=== PATIENT | female | born 1940 | race Caucasian/White ===

== ENCOUNTER 2016-06-22 08:00 | Outpatient (CLI) | payer MEDICARE, OTHER | END 2016-06-22 08:01 | disposition home or self-care (01) | DX: N39.0 Urinary tract infection, site not specified (principal) ==

== ENCOUNTER 2016-07-01 16:38 | Outpatient (CLI) | payer MEDICARE, OTHER | END 2016-07-01 16:39 | disposition home or self-care (01) | DX: R10.2 Pelvic and perineal pain (principal) ==

== ENCOUNTER 2016-07-13 08:45 | Outpatient (CLI) | payer MEDICARE, OTHER | END 2016-07-13 08:46 | disposition home or self-care (01) | DX: I10 Essential (primary) hypertension (principal); D69.6 Thrombocytopenia, unspecified; B18.2 Chronic viral hepatitis C ==

== ENCOUNTER 2017-02-11 08:25 | Outpatient (CLI) | payer MEDICARE, OTHER | END 2017-02-11 08:26 | disposition home or self-care (01) | LOC: LAB.F 08:25 | PROVIDERS: ATTEND Physician Assistant Medical | DX: E03.9 Hypothyroidism, unspecified (principal) | CPT/HCPCS: 36415; 84443 ==

== ENCOUNTER 2017-09-24 10:39 | Outpatient (CLI) | payer MEDICARE, OTHER ==
--- NOTE | 2017-09-24 14:27 | XRAY Report ---
THREE VIEW RIGHT KNEE: 09/24/2017 CLINICAL INDICATION: Pain. FINDINGS: AP, lateral, sunrise views of the right knee demonstrate moderate osteoarthritis. There is no evidence of acute fracture or dislocation. No effusion is seen. IMPRESSION: MODERATE RIGHT KNEE OSTEOARTHRITIS. TD: 09/24/2017 12:08
--- NOTE | 2017-09-24 14:27 | XRAY Report ---
RIGHT HIP AND PELVIS: 09/24/2017 CLINICAL INDICATION: Pain. FINDINGS: Frontal view of the hips and pelvis and frogleg lateral view of the right hip demonstrate moderate osteoarthritis. There is no evidence of acute fracture or dislocation. No radiopaque foreign body seen in the soft tissues. IMPRESSION: MODERATE RIGHT HIP OSTEOARTHRITIS. TD: 09/24/2017 12:06
== END 2017-09-24 10:40 | disposition home or self-care (01) ==
LOC: DI 10:39
PROVIDERS: ATTEND Internal Medicine
DX: M25.551 Pain in right hip (principal); M25.561 Pain in right knee; M16.11 Unilateral primary osteoarthritis, right hip; M17.11 Unilateral primary osteoarthritis, right knee

== ENCOUNTER 2018-03-02 08:37 | Outpatient (CLI) | payer MEDICARE, OTHER ==
[2018-03-02 12:07] LABS: BASOPHILS % (AUTO) 0.5 %; EOSINOPHILS # (AUTO) 0.3 10^3/uL (0.0-0.7); EOSINOPHILS % (AUTO) 5.7 %; HGB - HEMOGLOBIN 13.2 g/dL (12.0-16.0); LYMPHOCYTES # (AUTO) 1.5 10^3/uL (1.5-3.5); LYMPHOCYTES % (AUTO) 34.4 %; MEAN CORPUSCULAR HEMOGLOBIN 31.5 pg (27.0-31.0); MEAN CORPUSCULAR HGB CONC 34.7 g/dL (32.0-36.0); MEAN CORPUSCULAR VOLUME 90.8 fL (81.0-99.0); MEAN PLATELET VOLUME 8.8 fL (7.9-10.8); MONOCYTES # (AUTO) 0.5 10^3/uL (0.0-1.0); NEUTROPHILS # (AUTO) 2.1 10^3/uL (1.5-6.6); NEUTROPHILS % (AUTO) 48.4 %; PLT - PLATELET COUNT 130 10^3/uL (130-450); RED BLOOD COUNT 4.18 10^6/uL (4.20-5.40); RED CELL DISTRIBUTION WIDTH 13.2 % (12.0-15.0); WHITE BLOOD COUNT 4.4 x10^3/uL (4.8-10.8)
[2018-03-02 12:14] LABS: ALBUMIN 4.1 g/dL (3.2-5.5); ALBUMIN/GLOBULIN RATIO 1.5 (1.0-2.2); BILIRUBIN,TOTAL 0.9 mg/dL (0.2-1.0); CALCIUM 9.3 mg/dL (8.5-10.3); CREATININE 1.1 mg/dL (0.4-1.0); TOTAL PROTEIN 6.9 g/dL (6.7-8.2)
== END 2018-03-02 08:38 | disposition home or self-care (01) ==
LOC: LAB.F 08:37
PROVIDERS: ATTEND Physician Assistant Medical
DX: I10 Essential (primary) hypertension (principal); E03.9 Hypothyroidism, unspecified
CPT/HCPCS: 36415; 80053; 84443; 85025

== ENCOUNTER 2018-09-21 08:00 | Outpatient (CLI) | payer MEDICARE, OTHER ==
[2018-09-21 18:18] LABS: ALBUMIN 4.3 g/dL (3.2-5.5); ALBUMIN/GLOBULIN RATIO 1.4 (1.0-2.2); BILIRUBIN,TOTAL 0.7 mg/dL (0.2-1.0); CALCIUM 9.3 mg/dL (8.5-10.3); TOTAL PROTEIN 7.3 g/dL (6.7-8.2)
== END 2018-09-21 23:59 | disposition home or self-care (01) ==
LOC: LAB.F 08:00
PROVIDERS: ATTEND Physician Assistant Medical
DX: N28.9 Disorder of kidney and ureter, unspecified (principal)
CPT/HCPCS: 36415; 80053

== ENCOUNTER 2018-09-22 11:53 | Outpatient (CLI) | payer MEDICARE, OTHER ==
--- NOTE | 2018-09-23 14:03 | XRAY Report ---
Reason: PAIN IN LEFT FINGER Procedure Date: 09/22/2018 Accession Number: [id number] / [id number] Procedure: XR - Finger(s) LT CPT Code: FULL RESULT: EXAM: LEFT THIRD DIGIT RADIOGRAPHY EXAM DATE: 09/22/2018 12:27 PM. CLINICAL HISTORY: Left third digit pain after trauma. COMPARISON: None. TECHNIQUE: 3 views. FINDINGS: Bones: Normal. No fracture or bone lesion. Joints: Normal. No subluxations. Soft Tissues: Normal. No soft tissue swelling. IMPRESSION: No fracture or dislocation. RADIA
== END 2018-09-22 11:54 | disposition home or self-care (01) ==
LOC: DI 11:53
PROVIDERS: ATTEND Physician Assistant Medical
DX: M79.645 Pain in left finger(s) (principal)
CPT/HCPCS: 73140

== ENCOUNTER 2019-01-04 10:18 | Outpatient (CLI) | payer MEDICARE, OTHER ==
[2019-01-04 11:28] LABS: ALBUMIN/GLOBULIN RATIO 1.3 (1.0-2.2); ALKALINE PHOSPHATASE 45 IU/L (42-121); ALT ALANINE AMINOTRANSFERASE 14 IU/L (10-60); AST ASPARTATE AMINOTRANSFERASE 22 IU/L (10-42); BILIRUBIN,TOTAL 0.7 mg/dL (0.2-1.0); BUN - BLOOD UREA NITROGEN 30 mg/dL (6-20); CALCIUM 9.2 mg/dL (8.5-10.3); CARBON DIOXIDE - CO2 29 mmol/L (21-32); CHLORIDE 102 mmol/L (101-111); CHOL/HDL RATIO 2.8 (<4.4); CHOLESTEROL 149 mg/dL; CREATININE 1.3 mg/dL (0.4-1.0); GFR - MDRD 40 (>89); GLUCOSE 115 mg/dL (70-100); HDL CHOLESTEROL 54 mg/dL; LDL CHOLESTEROL,CALCULATED 78 mg/dL; LDL/HDL RATIO 1.4 (<4.4); SODIUM 139 mmol/L (135-145); VLDL CHOLESTEROL 17 mg/dL
--- NOTE | 2019-01-04 19:40 | XRAY Report ---
Reason: CHP, FATIGUE Procedure Date: 01/04/2019 Accession Number: [id number] / [id number] Procedure: XR - Chest 2 View X-Ray CPT Code: 94869 FULL RESULT: EXAM: CHEST RADIOGRAPHY. EXAM DATE: 01/04/2019 10:43 AM. CLINICAL HISTORY: Dyspnea on exertion, fatigue. COMPARISON: XR CHEST PA AND LAT 12/18/2011 12:04 PM. TECHNIQUE: 2 views. FINDINGS: Lungs/Pleura: No focal pneumonia or edema. No pleural effusion or pneumothorax. Mediastinum: Heart size not enlarged. No mediastinal shift. Other: Stable left pacemaker. Lower thoracic congenital partial fusion again noted. Moderate left shoulder arthritic changes. IMPRESSION: No acute process seen in the chest. RADIA
== END 2019-01-04 10:19 | disposition home or self-care (01) ==
LOC: DI 10:18
PROVIDERS: ATTEND Internal Medicine Cardiovascular Disease
DX: I44.2 Atrioventricular block, complete (principal); R53.83 Other fatigue; E03.9 Hypothyroidism, unspecified; N28.9 Disorder of kidney and ureter, unspecified; E78.00 Pure hypercholesterolemia, unspecified; B18.2 Chronic viral hepatitis C
CPT/HCPCS: 36415; 71046; 80053; 80061; 81599; 83721; 84443

== ENCOUNTER 2019-02-11 08:22 | Emergency (ER) | payer MEDICARE, OTHER ==
[2019-02-11 08:41] VITALS: BP 173/86
--- NOTE | 2019-02-11 08:42 | ED Physician Documentation ---
PD HPI URI - Stated complaint Stated Complaint: CONGESTION/COUGHING - Chief complaint Chief Complaint: Resp - History obtained from History obtained from: Patient - History of Present Illness Timing - onset: How many weeks ago (1) Timing duration: Weeks (1) Timing details: Gradual onset (She has had over a week of some congestion ear pain and clear rhinorrhea with nonproductive cough. She is now had 2 days of fevers productive cough of yellowish sputum and feeling worse breathing.), Still present (worsening the past couple of days, with increased cough and purulent sputum.) Associated symptoms: Nasal congestion, Productive cough (for couple of days). No: Fever Contributing factors: Sick contact (was around coughing people at [facility] waiting for flu shot.). No: Travel, Immunocompromised, COPD / asthma Improves by: No: Medication Worsened by: Activity Similar symptoms before: Has not had sx before Recently seen: Not recently seen Review of Systems Constitutional: reports: Fever (low fever the past day) Nose: reports: Rhinorrhea / runny nose, Congestion Throat: denies: Sore throat Cardiac: denies: Chest pain / pressure Respiratory: reports: Dyspnea, Cough. denies: Wheezing GI: denies: Vomiting, Diarrhea Skin: denies: Rash Musculoskeletal: denies: Extremity swelling PD PAST MEDICAL HISTORY - Past Medical History Cardiovascular: Hypertension, Arrhythmia, Other (pacemaker) Respiratory: None Neuro: None Endocrine/Autoimmune: HyPOthyroidism - Past Surgical History Cardiovascular: Pacemaker - Present Medications Home Medications: Ambulatory Orders Medication Instructions Recorded Confirmed Aspirin Chewable [[facility] Christiano 02/11/19 Aspirin] Benzonatate [Tessalon Perle] 100 mg PO TID PRN #25 capsule 02/11/19 Carvedilol 12.5 mg PO 02/11/19 Doxycycline Hyclate 100 mg PO BID #14 capsule 02/11/19 Levothyroxine [Synthroid] 88 mcg PO QDAC 02/11/19 02/11/19 Meloxicam 15 mg PO 02/11/19 Multivitamin [Multiple Vitamins] 1 each PO 02/11/19 Rosuvastatin Calcium 10 mg PO 02/11/19 Triamterene/Hydrochlorothiazid 1 each PO 02/11/19 [Triamterene-Hctz 37.5-25 mg Cp] dexAMETHasone [Decadron] 4 mg PO DAILY #7 tablet 02/11/19 guaiFENesin/CODEINE [Robitussin AC] 10 ml PO Q6H PRN #240 ml 02/11/19 - Allergies Allergies/Adverse Reactions: Allergies Allergy/AdvReac Type Severity Reaction Status Date / Time cephalexin Allergy Unknown Verified 02/11/19 08:47 Macrolide Antibiotics Allergy Unknown Verified 02/11/19 08:47 oxycodone Allergy Unknown Verified 02/11/19 08:47 Penicillins Allergy Unknown Verified 02/11/19 08:47 Quinolones Allergy Unknown Verified 02/11/19 08:47 ketolides Allergy Unknown Uncoded 02/11/19 08:47 PD ED PE NORMAL - Vitals Vital signs reviewed: Yes - General General: Alert and oriented X 3, No acute distress, Well developed/nourished - HEENT HEENT: Pharynx benign - Neck Neck: Supple, no meningeal sign, No adenopathy - Cardiac Cardiac: RRR, No murmur - Respiratory Respiratory: Clear bilaterally - Abdomen Abdomen: Soft, Non tender - Derm Derm: Normal color, Warm and dry - Extremities Extremities: No tenderness to palpate, Normal ROM s pain, No edema, No calf tenderness / cord - Neuro Neuro: Alert and oriented X 3, No motor deficit, Normal speech Results - Vitals Vitals: Vital Signs - 24 hr 02/11/19 08:39 Temperature 36.7 C Heart Rate 89 Respiratory 20 Rate Blood Pressure 173/86 H O2 Saturation 96 Oxygen O2 Source Room air PD MEDICAL DECISION MAKING - ED course Complexity details: considered differential (Sounds most like an upper respiratory infection and likely viral. However she has increased symptoms now after over a week of illness so consider secondary bacterial bronchitis.), d/w patient Departure - Departure Disposition: 01 Home, Self Care Clinical Impression: Upper respiratory infection Qualifiers: URI type: unspecified URI Qualified Code(s): J06.9 - Acute upper respiratory infection, unspecified Condition: Stable Record reviewed to determine appropriate education?: Yes Instructions: ED Upper Resp Infec Abx Tx Follow-Up: Aidee Benson PA-C [Primary Care Provider] - Prescriptions: Benzonatate [Tessalon Perle] 100 mg PO TID PRN #25 capsule PRN Reason: Cough dexAMETHasone [Decadron] 4 mg PO DAILY #7 tablet Doxycycline Hyclate 100 mg PO BID #14 capsule guaiFENesin/CODEINE [Robitussin AC] 10 ml PO Q6H PRN #240 ml PRN Reason: Cough Comments: Stay well-hydrated. Tylenol if needed for fevers. Doxycycline antibiotic twice daily for a week. Decadron steroid for the inflammation of the upper airway will reduce the s ymptoms quite a bit with less coughing and congestion. Take this daily for a week. Tessalon as needed for cough suppression. Add cough medicine if needed. Recheck if not improving well over the next several days.
[2019-02-11] MEDS ORDERED: DOXYCYCLINE 100 MG TABLET PO STA (08:57)
[2019-02-11] MEDS ORDERED: BENZONATATE 100 MG CAPSULE PO STA (08:57)
[2019-02-11] MEDS ORDERED: DEXAMETHASONE 10 MG/ML VIAL PO STA (08:57)
[2019-02-11] MEDS ORDERED: CHERRY SYRUP 10 ML UDC PO ONE (08:57)
== END 2019-02-11 09:10 | disposition home or self-care (01) ==
LOC: ED 08:22
DX: J06.9 Acute upper respiratory infection, unspecified (principal); I10 Essential (primary) hypertension; Z95.0 Presence of cardiac pacemaker; Z79.82 Long term (current) use of aspirin
CPT/HCPCS: 99284; A9270

== ENCOUNTER 2019-03-30 08:32 | Outpatient (CLI) | payer MEDICARE, OTHER ==
[2019-03-30 09:05] LABS: ALBUMIN 4.1 g/dL (3.2-5.5); ALBUMIN/GLOBULIN RATIO 1.3 (1.0-2.2); BILIRUBIN,TOTAL 0.7 mg/dL (0.2-1.0); CALCIUM 9.4 mg/dL (8.5-10.3); CREATININE 1.1 mg/dL (0.4-1.0); TOTAL PROTEIN 7.2 g/dL (6.7-8.2)
== END 2019-03-30 08:33 | disposition home or self-care (01) ==
LOC: LAB 08:32
PROVIDERS: ATTEND Physician Assistant Medical
DX: N28.9 Disorder of kidney and ureter, unspecified (principal); I10 Essential (primary) hypertension
CPT/HCPCS: 36415; 80053

== ENCOUNTER 2019-06-13 09:37 | Outpatient (CLI) | payer MEDICARE, OTHER ==
[2019-06-13 10:12] LABS: CALCIUM 9.5 mg/dL (8.5-10.3); CREATININE 1.1 mg/dL (0.4-1.0)
== END 2019-06-13 09:38 | disposition home or self-care (01) ==
LOC: LAB 09:37
PROVIDERS: ATTEND Physician Assistant Medical
DX: N28.9 Disorder of kidney and ureter, unspecified (principal)
CPT/HCPCS: 36415; 80048

== ENCOUNTER 2020-05-14 08:58 | Outpatient (CLI) | payer MEDICARE, OTHER ==
[2020-05-14 09:30] LABS: BASOPHILS % (AUTO) 0.6 %; EOSINOPHILS # (AUTO) 0.2 10^3/uL (0.0-0.7); EOSINOPHILS % (AUTO) 4.2 %; HGB - HEMOGLOBIN 12.7 g/dL (12.0-16.0); LYMPHOCYTES # (AUTO) 1.6 10^3/uL (1.5-3.5); LYMPHOCYTES % (AUTO) 33.4 %; MEAN CORPUSCULAR HEMOGLOBIN 31.1 pg (27.0-31.0); MEAN CORPUSCULAR HGB CONC 32.9 g/dL (32.0-36.0); MEAN CORPUSCULAR VOLUME 94.4 fL (81.0-99.0); MEAN PLATELET VOLUME 10.5 fL (7.9-10.8); MONOCYTES # (AUTO) 0.5 10^3/uL (0.0-1.0); MONOCYTES % (AUTO) 10.6 %; NEUTROPHILS # (AUTO) 2.4 10^3/uL (1.5-6.6); PLT - PLATELET COUNT 137 10^3/uL (130-450); RED BLOOD COUNT 4.09 10^6/uL (4.20-5.40); RED CELL DISTRIBUTION WIDTH 12.6 % (12.0-15.0); WHITE BLOOD COUNT 4.8 x10^3/uL (4.8-10.8)
[2020-05-14 09:47] LABS: ALBUMIN 4.1 g/dL (3.2-5.5); ALBUMIN/GLOBULIN RATIO 1.4 (1.0-2.2); ALKALINE PHOSPHATASE 49 IU/L (42-121); ALT ALANINE AMINOTRANSFERASE 15 IU/L (10-60); AST ASPARTATE AMINOTRANSFERASE 23 IU/L (10-42); BILIRUBIN,TOTAL 0.8 mg/dL (0.2-1.0); BUN - BLOOD UREA NITROGEN 31 mg/dL (6-20); CALCIUM 9.6 mg/dL (8.5-10.3); CARBON DIOXIDE - CO2 28 mmol/L (21-32); CHLORIDE 102 mmol/L (101-111); CHOL/HDL RATIO 2.4 (<4.4); CHOLESTEROL 159 mg/dL; CREATININE 1.3 mg/dL (0.4-1.0); GLUCOSE 112 mg/dL (70-100); HDL CHOLESTEROL 65 mg/dL; LDL CHOLESTEROL,CALCULATED 79 mg/dL; LDL/HDL RATIO 1.2 (<4.4); VLDL CHOLESTEROL 15 mg/dL
== END 2020-05-14 08:59 | disposition home or self-care (01) ==
LOC: LAB 08:58
PROVIDERS: ATTEND Physician Assistant
DX: G47.33 Obstructive sleep apnea (adult) (pediatric) (principal); I10 Essential (primary) hypertension; N28.9 Disorder of kidney and ureter, unspecified; E03.9 Hypothyroidism, unspecified; E78.00 Pure hypercholesterolemia, unspecified
CPT/HCPCS: 36415; 80053; 80061; 83721; 84443; 85025

== ENCOUNTER 2020-08-05 08:38 | Day surgery (SDC) | payer MEDICARE, OTHER ==
[2020-08-05] MEDS ORDERED: LACTATED RINGERS 1,000 ML IV ONE ×2 (09:26→10:48)
[2020-08-05] MEDS ORDERED: ATROPINE ABBOJECT 1 MG/10 ML SYRINGE IVP PRN (09:44)
[2020-08-05] MEDS ORDERED: METOCLOPRAMIDE 10 MG/2 ML VIAL IVP PRN (09:44)
[2020-08-05] MEDS ORDERED: fentaNYL 100 MCG/2 ML VIAL IVP PRN (09:44)
[2020-08-05] MEDS ORDERED: ePHEDrine 50 MG/ML VIAL IVP PRN (09:44)
[2020-08-05] MEDS ORDERED: NALOXONE 0.4 MG/ML VIAL IVP PRN (09:44)
[2020-08-05] MEDS ORDERED: ONDANSETRON 4 MG/2 ML VIAL IVP PRN (09:44)
--- NOTE | 2020-08-05 09:44 | ANESTHESIA ---
Pre-Anesthesia VS, & Labs - Diagnosis hx of polyps - Procedure colonoscopy Vital Signs: Temp Pulse Resp BP Pulse Ox 36.4 C L 71 16 158/78 H 94 08/05/20 09:19 08/05/20 09:19 08/05/20 09:19 08/05/20 09:19 08/05/20 09:19 Height: 5 ft 4 in Weight (kg): 99.1 kg Body Mass Index: 37.5 BMI Classification: Obese - NPO >8 hours - Is Patient ?: No Home Medications and Allergies Home Medications: Ambulatory Orders Ascorbic Acid [Vitamin C] 500 mg PO DAILY 08/02/20 Calcium Carbonate/Vitamin D3 [Calcium 600-Vit D3 200 Tablet] 1 each PO QPM 08/02/20 Cholecalciferol (Vitamin D3) [Vitamin D3] 50 mcg PO DAILY 08/02/20 Cranberry Extract 4,200 mg PO BID 08/02/20 Garlic 1,000 mg PO BID 08/02/20 Glucos Sul 2Kcl/MSM/Chond/C/Mn [Glucosamine Chondroitin Cap] 1 each PO DAILY 08/02/20 Green Tea Daniel Extract [Green Tea Extract] 315 mg PO DAILY 08/02/20 Lactobacillus Acidophilus [Probiotic Acidophilus] 1 each PO DAILY 08/02/20 Magnesium Oxide 500 mg PO DAILY 08/02/20 Potassium Gluconate 99 mg PO DAILY 08/02/20 Ubidecarenone [Co Q-10] 200 mg PO QPM 08/02/20 Zolpidem [Ambien] 5 mg PO HS PRN 08/02/20 Aspirin Chewable [St Christiano Aspirin] 81 mg PO DAILY 02/11/19 Carvedilol 12.5 mg PO BID 02/11/19 Levothyroxine [Synthroid] 88 mcg PO QDAC 02/11/19 Multivitamin [Multiple Vitamins] 1 each PO DAILY 02/11/19 Rosuvastatin Calcium 10 mg PO QPM 02/11/19 Triamterene/Hydrochlorothiazid [Triamterene-Hctz 37.5-25 mg Cp] 1 each PO DAILY 02/11/19 Ascorbic Acid [Vitamin C] 500 mg PO DAILY 08/02/20 Calcium Carbonate/Vitamin D3 [Calcium 600-Vit D3 200 Tablet] 1 each PO QPM 08/02/20 Cholecalciferol (Vitamin D3) [Vitamin D3] 50 mcg PO DAILY 08/02/20 Cranberry Extract 4,200 mg PO BID 08/02/20 Garlic 1,000 mg PO BID 08/02/20 Glucos Sul 2Kcl/MSM/Chond/C/Mn [Glucosamine Chondroitin Cap] 1 each PO DAILY 08/02/20 Green Tea Daniel Extract [Green Tea Extract] 315 mg PO DAILY 08/02/20 Lactobacillus Acidophilus [Probiotic Acidophilus] 1 each PO DAILY 08/02/20 Magnesium Oxide 500 mg PO DAILY 08/02/20 Potassium Gluconate 99 mg PO DAILY 08/02/20 Ubidecarenone [Co Q-10] 200 mg PO QPM 08/02/20 Zolpidem [Ambien] 5 mg PO HS PRN 08/02/20 Allergies/Adverse Reactions: Allergies Allergy/AdvReac Type Severity Reaction Status Date / Time cephalexin Allergy Unknown Verified 02/11/19 08:47 Macrolide Antibiotics Allergy Unknown Verified 02/11/19 08:47 oxycodone Allergy Itching Verified 08/02/20 11:59 Penicillins Allergy Itching Verified 08/02/20 11:59 Quinolones Allergy Unknown Verified 02/11/19 08:47 ketolides Allergy Unknown Uncoded 02/11/19 08:47 Anes History & Medical History - Anesthetic History Anesthesia Complications: reports: No previous complications Family history of Anesthesia Complications: Denies Family history of Malignant Hyperthermia: Denies - Medical History Cardiovascular: reports: Hypertension, Peripheral Vascular Disease, [place], Arrhythmia Pulmonary: reports: Shortness of breath, Sleep apnea, CPAP use Gastrointestinal: reports: Colon polyps, Hepatitis Urinary: reports: Incontinence Neuro: reports: None Musculoskeletal: reports: Osteoarthritis, Chronic back pain Endocrine/Autoimmune: reports: HyPOthyroidism Skin: reports: Rosacea History of Cancer?: No - Surgical History Eyes Ears Nose Throat (EENT): reports: Tonsil/Adenoidectomy Cardiothoracic: reports: Pacemaker Gynecologic: reports: Tubal ligation Orthopedic: reports: Rotator cuff repair, Arthroscopic surgery, Carpal Tunnel surgery Dermatologic: reports: Skin cancer surgery Exam General: Alert, Oriented x3, Cooperative Dental: WNL Mouth Openin Fingerbreadth Neck Mobility: Normal Mallampati classification: III Thyromental Distance: 4-6 cm Respiratory: Lungs clear Cardiovascular: Regular rate, Other (pacemaker) Abdomen: Normal bowel sounds Extremities: No clubbing Neurological: Normal gait Mental/Cognitive Status: Alert/Oriented X3 Cognitive Status: Within normal limits Plan Anesthesia Type: Total IV Consent for Procedure(s) Verified and Reviewed: Yes Code Status: Attempt Resuscitation ASA classification: 3-Severe systemic disease Is this case an emergency?: No
[2020-08-05] MEDS ORDERED: LACTATED RINGERS 1,000 ML IV SCH (10:00)
[2020-08-05] MEDS ORDERED: LIDOCAINE-MPF 2% 5 ML VIAL ONE (10:01)
--- NOTE | 2020-08-05 10:06 | HISTORY & PHYSICAL EXAMINATION ---
Chief Complaint - Chief Complaint Chief Complaint: hx colon polyps History of Present Illness - History Obtained From Records Reviewed: yes History obtained from: pt Exam Limitations: none - History of Present Illness HPI Comment/Other: History colon polyps. Last screening 9 to 10 years ago. History - Past Medical History Cardiovascular: reports: Hypertension, Peripheral Vascular Disease, [place], Arrhythmia Respiratory: reports: Shortness of breath, Sleep apnea, CPAP use Neuro: reports: None Endocrine/Autoimmune: reports: HyPOthyroidism GI: reports: Colon polyps, Hepatitis : reports: Incontinence HEENT: reports: Chronic vision loss Psych: reports: None Musculoskeletal: reports: Osteoarthritis, Chronic back pain Derm: reports: Rosacea MRSA Hx?: No - Past Surgical History Ortho: reports: Rotator cuff repair, Arthroscopic surgery, Carpal Tunnel surgery /SHOE [employer]ER: reports: Tubal ligation Cardiovascular: reports: Pacemaker HEENT: reports: Tonsil/Adenoidectomy Derm: reports: Skin cancer surgery Meds/Allgy - Home Medications Home Medications: Ambulatory Orders Medication Instructions Recorded Confirmed Aspirin Chewable [[facility] Christiano 81 mg PO DAILY 02/11/19 08/02/20 Aspirin] Carvedilol 12.5 mg PO BID 02/11/19 08/02/20 Levothyroxine [Synthroid] 88 mcg PO QDAC 02/11/19 08/02/20 Multivitamin [Multiple Vitamins] 1 each PO DAILY 02/11/19 08/02/20 Rosuvastatin Calcium 10 mg PO QPM 02/11/19 08/02/20 Triamterene/Hydrochlorothiazid 1 each PO DAILY 02/11/19 08/02/20 [Triamterene-Hctz 37.5-25 mg Cp] Ascorbic Acid [Vitamin C] 500 mg PO DAILY 08/02/20 08/02/20 Calcium Carbonate/Vitamin D3 1 each PO QPM 08/02/20 08/02/20 [Calcium 600-Vit D3 200 Tablet] Cholecalciferol (Vitamin D3) 50 mcg PO DAILY 08/02/20 08/02/20 [Vitamin D3] Cranberry Extract 4,200 mg PO BID 08/02/20 Garlic 1,000 mg PO BID 08/02/20 08/02/20 Glucos Sul 2Kcl/MSM/Chond/C/Mn 1 each PO DAILY 08/02/20 08/02/20 [Glucosamine Chondroitin Cap] Green Tea Mccool Extract [Green Tea 315 mg PO DAILY 08/02/20 08/02/20 Extract] Lactobacillus Acidophilus 1 each PO DAILY 08/02/20 08/02/20 [Probiotic Acidophilus] Magnesium Oxide 500 mg PO DAILY 08/02/20 08/02/20 Potassium Gluconate 99 mg PO DAILY 08/02/20 08/02/20 Ubidecarenone [Co Q-10] 200 mg PO QPM 08/02/20 08/02/20 Zolpidem [Ambien] 5 mg PO HS PRN 08/02/20 08/02/20 - Allergies Allergies/Adverse Reactions: Allergies Allergy/AdvReac Type Severity Reaction Status Date / Time cephalexin Allergy Unknown Verified 02/11/19 08:47 Macrolide Antibiotics Allergy Unknown Verified 02/11/19 08:47 oxycodone Allergy Itching Verified 08/02/20 11:59 Penicillins Allergy Itching Verified 08/02/20 11:59 Quinolones Allergy Unknown Verified 02/11/19 08:47 ketolides Allergy Unknown Uncoded 02/11/19 08:47 Review of Systems - Constitutional Constitutional: reports: Fatigue (10 pt ros as above otherwise unremarkable) Exam - Vital Signs Reviewed Vital Signs: Yes Vital Signs: Vital Signs x48h Temp Pulse Resp BP Pulse Ox 08/05/20 09:19 36.4 C L 71 16 158/78 H 94 - Physical Exam General Appearance: positive: No acute distress, Alert Eyes Bilateral: positive: Normal inspection, PERRL, EOMI ENT: positive: Pharynx nml, No signs of dehydration Neck: positive: No JVD, Trachea midline Respiratory: positive: No respiratory distress, Breath sounds nml Cardiovascular: positive: Regular rate & rhythm Abdomen: positive: Non-tender, No distention Neurologic/Psychiatric: positive: Oriented x3 Conclusion/Plan - Problem List (1) History of adenomatous polyp of colon Conclusion/Plan: plan colonoscopy. parq held and consent obtained
[2020-08-05 11:27] VITALS: BP 135/70
--- NOTE | 2020-08-05 12:43 | ANESTHESIA POST OP EVALUATION ---
Anesthesia Post Eval - Post Anesthesia Eval Vitals: Last Vital Signs Temp 36.2 C L 08/05/20 11:10 Pulse 64 08/05/20 11:26 Resp 16 08/05/20 11:26 BP 135/70 H 08/05/20 11:26 Pulse Ox 99 08/05/20 11:26 CV Function Including HR & BP: Stable Pain Control: Satisfactory Nausea & Vomiting: Negative Mental Status: Baseline Respiratory Status: Airway Patent Hydration Status: Satisfactory Anesthesia Complications: None
== END 2020-08-05 08:39 | disposition home or self-care (01) ==
LOC: SDS 08:38
PROVIDERS: ATTEND Internal Medicine Gastroenterology
PROC: 0DBN8ZX Excision of Sigmoid Colon, Via Natural or Artificial Opening Endoscopic, Diagnostic (ICD-10-PCS; principal; 2020-08-05 10:00)
DX: Z12.11 Encounter for screening for malignant neoplasm of colon (principal); K57.30 Diverticulosis of large intestine without perforation or abscess without bleeding; G47.33 Obstructive sleep apnea (adult) (pediatric); I25.2 Old myocardial infarction; E66.9 Obesity, unspecified; Z68.37 Body mass index [BMI] 37.0-37.9, adult; I10 Essential (primary) hypertension; Z86.010 Personal history of colon polyps; Z95.0 Presence of cardiac pacemaker
CPT/HCPCS: 45380; J7120

== ENCOUNTER 2021-03-21 08:00 | Outpatient (CLI) | payer MEDICARE, OTHER ==
--- NOTE | 2021-03-21 10:36 | XRAY Report ---
PROCEDURE: Cervical Spine 2 View INDICATIONS: NECK PAIN, ACUTE TECHNIQUE: 3 view(s) of the cervical spine were acquired. COMPARISON: None. FINDINGS: Bones: No fractures or dislocations to the C7 level. The lateral masses of C1 appear intact on the odontoid view. No suspicious bony lesions. Straightening, which may be due to spasm or positioning. Mild to moderate disc height loss with endplate osteophytosis, most prominent at C4-7. Uncovertebral/ facet arthrosis, most prominent at C3-4. Soft tissues: No prevertebral soft tissue swelling. IMPRESSION: 1. No acute osseous abnormality. Reviewed by: Kobe Montelongo MD on 03/21/2021 10:35 AM [facility] [[email or web address]] Approved by: Kobe Montelongo MD on 03/21/2021 10:35 AM [facility] [[email or web address]] Station ID: [id number]
== END 2021-03-21 23:59 | disposition home or self-care (01) ==
LOC: DI.S 08:00
PROVIDERS: ATTEND Physician Assistant
DX: M47.812 Spondylosis without myelopathy or radiculopathy, cervical region (principal)

== ENCOUNTER 2021-06-12 09:30 | Outpatient (CLI) | payer MEDICARE, OTHER ==
[2021-06-12 09:48] LABS: BASOPHILS % (AUTO) 0.4 %; EOSINOPHILS # (AUTO) 0.2 10^3/uL (0.0-0.7); EOSINOPHILS % (AUTO) 4.6 %; HCT - HEMATOCRIT 38.8 % (37.0-47.0); HGB - HEMOGLOBIN 13.1 g/dL (12.0-16.0); LYMPHOCYTES # (AUTO) 1.6 10^3/uL (1.5-3.5); LYMPHOCYTES % (AUTO) 34.4 %; MEAN CORPUSCULAR HEMOGLOBIN 31.5 pg (27.0-31.0); MEAN CORPUSCULAR HGB CONC 33.8 g/dL (32.0-36.0); MEAN CORPUSCULAR VOLUME 93.3 fL (81.0-99.0); MONOCYTES # (AUTO) 0.5 10^3/uL (0.0-1.0); MONOCYTES % (AUTO) 10.5 %; NEUTROPHILS # (AUTO) 2.3 10^3/uL (1.5-6.6); NEUTROPHILS % (AUTO) 49.9 %; PLT - PLATELET COUNT 142 10^3/uL (130-450); RED BLOOD COUNT 4.16 10^6/uL (4.20-5.40); RED CELL DISTRIBUTION WIDTH 12.8 % (12.0-15.0); WHITE BLOOD COUNT 4.6 x10^3/uL (4.8-10.8)
[2021-06-12 10:09] LABS: ALBUMIN 4.1 g/dL (3.2-5.5); ALBUMIN/GLOBULIN RATIO 1.5 (1.0-2.2); ALKALINE PHOSPHATASE 47 IU/L (42-121); ALT ALANINE AMINOTRANSFERASE 14 IU/L (10-60); AST ASPARTATE AMINOTRANSFERASE 22 IU/L (10-42); BUN - BLOOD UREA NITROGEN 31 mg/dL (6-20); CALCIUM 9.7 mg/dL (8.5-10.3); CARBON DIOXIDE - CO2 29 mmol/L (21-32); CHLORIDE 97 mmol/L (101-111); CHOL/HDL RATIO 2.5 (<4.4); CHOLESTEROL 149 mg/dL; CREATININE 1.1 mg/dL (0.4-1.0); GFR - MDRD 48 (>89); GLUCOSE 107 mg/dL (70-100); HDL CHOLESTEROL 59 mg/dL; LDL CHOLESTEROL,CALCULATED 75 mg/dL; LDL/HDL RATIO 1.3 (<4.4); POTASSIUM 4.4 mmol/L (3.5-5.0); SODIUM 136 mmol/L (135-145); TOTAL PROTEIN 6.9 g/dL (6.7-8.2); TRIGLYCERIDES 76 mg/dL; VLDL CHOLESTEROL 15 mg/dL
[2021-06-12 10:20] LABS: THYROID STIMULATING HORMONE 1.78 uIU/mL (0.34-5.60)
== END 2021-06-12 09:31 | disposition home or self-care (01) ==
LOC: LAB 09:30
PROVIDERS: ATTEND Internal Medicine
DX: I10 Essential (primary) hypertension (principal); E03.9 Hypothyroidism, unspecified; E78.00 Pure hypercholesterolemia, unspecified
CPT/HCPCS: 36415; 80053; 80061; 83721; 84443; 85025

== ENCOUNTER 2022-04-22 12:50 | Outpatient (CLI) | payer MEDICARE, OTHER ==
--- NOTE | 2022-04-23 13:03 | Mammography Report ---
BILATERAL DIGITAL SCREENING MAMMOGRAM 3D/2D: 04/22/2022 CLINICAL: Routine screening. No prior exams were available for comparison. There are scattered areas of fibroglandular density in both breasts (category b / 25%-50% glandular t issue). There is a possible irregular equal density focal asymmetry in the left breast central to the nipple posterior depth. No other significant masses, calcifications, or other findings are seen in either breast. IMPRESSION: INCOMPLETE: NEEDS ADDITIONAL IMAGING EVALUATION The possible irregular equal density focal asymmetry in the left breast has a differential diagnosis of fibroglandular tissue and is indeterminate. Additional views with possible ultrasound are recomme nded. Based on the Tyrer Cuzick model (a risk assessment model) the patients lifetime risk is 1.5% and her 10 year risk is 0.0%. According to the ACR, ACS, and NCCN guidelines, an annual breast MRI exam yash g with mammogram is recommended if the patients lifetime risk is 20% or greater. This exam was interpreted at Station ID: [id number]. NOTE: For mammograms, a report in lay terms will be sent to the patient. Approximately 15% of breast malignancies will not be visualized mammographically. In the management of a palpable breast mass, a negative mammogram must not discourage biopsy of a clinically suspicious lesion. Electronically Signed By: Navjot Grayson M.D. aty/:04/22/2022 17:51:08 ACR BI-RADS Category 0: Incomplete 3340F PARENCHYMAL PATTERN: (A) - The breast(s) demonstrate(s) scattered fibroglandular densities. BI-RADS CATEGORY: (0) - 0 Mammo and [place] [id number] Immediate follow-up LATERALITY: (L)
== END 2022-04-22 12:51 | disposition home or self-care (01) ==
LOC: DI 12:50
PROVIDERS: ATTEND Registered Nurse
DX: Z12.31 Encounter for screening mammogram for malignant neoplasm of breast (principal); R92.8 Other abnormal and inconclusive findings on diagnostic imaging of breast

== ENCOUNTER 2022-06-02 07:47 | Outpatient (CLI) | payer MEDICARE, OTHER ==
[2022-06-02] MEDS ORDERED: LIDOCAINE 1%-EPI 1:100000 20 ML MDV ONE (08:07)
[2022-06-02] MEDS ORDERED: LIDOCAINE-MPF 1% 5 ML VIAL ONE (08:08)
[2022-06-02] MEDS ORDERED: LIDOCAINE-MPF 1% 5 ML VIAL TD ONE (15:03)
[2022-06-02] MEDS ORDERED: LIDOCAINE 1%-EPI 1:100000 20 ML MDV SUBQ ONE (16:07)
--- NOTE | 2022-06-04 11:22 | Mammography Report ---
DIGITAL TOMOGRAPHIC MAMMOGRAPHY GUIDED STEREOTACTIC GUIDED BIOPSY LEFT BREAST WITH MARKING DEVICE INS ERTED AND POST MAMMOGRAPHIC IMAGING- POST-PROCEDURE IMAGING FOR MARKER PLACEMENT: 06/02/2022 CLINICAL: Left breast stereotactic biopsy. Correlation is made to exams dated: 05/14/2022 mammogram, 04/22/2022 mammogram - [facility], 02/22/2015 mammogram, and 04/24/2013 mammogram - [facility]. A stereotactic guided biopsy was performed for the indistinct irregular shaped asymmetry located in t he left breast central to the nipple posterior depth. This was described on the previous mammography report. The skin was prepped in the usual manner. Local anesthetic was administered to the access site. A small incision was made in the breast. The abnormality was approached from the craniocaudal aspect using an upright digital tomographic mammography unit. A 9 gauge biopsy needle was placed ad jacent to the abnormality under computer guidance and confirmatory stereotactic mammography images we re obtained to document needle placement. Once the needle was documented to be in the correct locati on, four specimens were obtained using Siemens. A Trimark clip was inserted into the biopsy cavity. Post procedure mammographic imaging demonstrates the location device at the targeted area. The spec imens were sent to the laboratory for pathological analysis. IMPRESSION: STEREOTACTIC GUIDED BIOPSY MALIGNANT Stereotactic guided biopsy of the asymmetry in the left breast central to the nipple posterior depth was successful. 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 Patholog y results are concordant with imaging findings. Surgical/oncologic consult recommended. This exam was interpreted at Station ID: [id number]. Dimitry Mensah M.D. acr,lc/:06/04/2022 10:19:31 BI-RADS CATEGORY: () - Unspecified - other recall n/a LATERALITY: (B)
== END 2022-06-02 07:48 | disposition home or self-care (01) ==
LOC: DI 07:47
PROVIDERS: ATTEND Registered Nurse
DX: C50.112 Malignant neoplasm of central portion of left female breast (principal); Z17.0 Estrogen receptor positive status [ER+]
CPT/HCPCS: 19081

== ENCOUNTER 2022-06-10 10:17 | Outpatient (CLI) | payer MEDICARE, OTHER ==
[2022-06-10 11:07] LABS: BASOPHILS % (AUTO) 0.8 %; EOSINOPHILS # (AUTO) 0.1 10^3/uL (0.0-0.7); EOSINOPHILS % (AUTO) 3.1 %; HCT - HEMATOCRIT 40.2 % (37.0-47.0); HGB - HEMOGLOBIN 13.2 g/dL (12.0-16.0); LYMPHOCYTES # (AUTO) 1.4 10^3/uL (1.5-3.5); LYMPHOCYTES % (AUTO) 36.5 %; MEAN CORPUSCULAR HEMOGLOBIN 30.6 pg (27.0-31.0); MEAN CORPUSCULAR HGB CONC 32.8 g/dL (32.0-36.0); MEAN CORPUSCULAR VOLUME 93.3 fL (81.0-99.0); MONOCYTES # (AUTO) 0.5 10^3/uL (0.0-1.0); MONOCYTES % (AUTO) 11.6 %; NEUTROPHILS # (AUTO) 1.9 10^3/uL (1.5-6.6); NEUTROPHILS % (AUTO) 47.7 %; PLT - PLATELET COUNT 138 10^3/uL (130-450); RED BLOOD COUNT 4.31 10^6/uL (4.20-5.40); RED CELL DISTRIBUTION WIDTH 13.1 % (12.0-15.0); WHITE BLOOD COUNT 3.9 x10^3/uL (4.8-10.8)
[2022-06-10 11:26] LABS: ALBUMIN 3.9 g/dL (3.2-5.5); ALBUMIN/GLOBULIN RATIO 1.3 (1.0-2.2); ALKALINE PHOSPHATASE 46 IU/L (42-121); ALT ALANINE AMINOTRANSFERASE 17 IU/L (10-60); AST ASPARTATE AMINOTRANSFERASE 25 IU/L (10-42); BILIRUBIN,TOTAL 0.8 mg/dL (0.2-1.0); BUN - BLOOD UREA NITROGEN 27 mg/dL (6-20); CALCIUM 9.8 mg/dL (8.5-10.3); CARBON DIOXIDE - CO2 27 mmol/L (21-32); CHLORIDE 104 mmol/L (101-111); CHOL/HDL RATIO 2.3 (<4.4); CHOLESTEROL 151 mg/dL; CREATININE 0.9 mg/dL (0.4-1.0); GFR - MDRD 60 (>89); GLUCOSE 100 mg/dL (70-100); HDL CHOLESTEROL 66 mg/dL; LDL CHOLESTEROL,CALCULATED 74 mg/dL; LDL/HDL RATIO 1.1 (<4.4); POTASSIUM 4.2 mmol/L (3.5-5.0); SODIUM 141 mmol/L (135-145); TOTAL PROTEIN 6.8 g/dL (6.7-8.2); TRIGLYCERIDES 57 mg/dL; VLDL CHOLESTEROL 11 mg/dL
[2022-06-10 11:38] LABS: THYROID STIMULATING HORMONE 3.11 uIU/mL (0.34-5.60)
== END 2022-06-10 10:18 | disposition home or self-care (01) ==
LOC: LAB 10:17
PROVIDERS: ATTEND Registered Nurse
DX: C50.912 Malignant neoplasm of unspecified site of left female breast (principal); Z13.220 Encounter for screening for lipoid disorders; Z13.29 Encounter for screening for other suspected endocrine disorder
CPT/HCPCS: 36415; 80053; 80061; 83721; 84443; 85025

== ENCOUNTER 2023-03-26 09:53 | Outpatient (CLI) | payer MEDICARE, OTHER ==
--- NOTE | 2023-03-29 11:49 | Mammography Report ---
BILATERAL DIGITAL DIAGNOSTIC MAMMOGRAM 3D/2D WITH SPOT COMPRESSION - LEFT BREAST POST LUMPECTOMY: 03/26/2023 CLINICAL: Oncology follow up of left breast cancer. Due for bilateral exam. Comparison is made to exams dated: 09/04/2022 localization, 06/02/2022 stereotactic biopsy, 05/14/2022 m ammogram, and 04/22/2022 mammogram - [facility]. There are scattered areas of fibroglandular density in both breasts (category b / 25%-50% glandular t issue). There are benign post operative findings from prior lumpectomy in the left breast. No significant masses, calcifications, or other findings are seen in either breast. IMPRESSION: BENIGN Left breast status post lumpectomy. No mammographic evidence of malignancy. A 1 year screening mammog judd is recommended. Findings and recommendations were conveyed to the patient during today's evaluation. This exam was interpreted at Station ID: [id number]. NOTE: For mammograms, a report in lay terms will be sent to the patient. Approximately 15% of breast malignancies will not be visualized mammographically. In the management of a palpable breast mass, a negative mammogram must not discourage biopsy of a clinically suspicious lesion. Electronically Signed By: Thalia Eaton M.D., PH.D eb/:03/26/2023 11:12:38 letter sent: No_Letter ACR BI-RADS Category 2: Benign Finding(s) 3342F PARENCHYMAL PATTERN: (A) - The breast(s) demonstrate(s) scattered fibroglandular densities. BI-RADS CATEGORY: (2) - 2 Mammogram [id number] 1 year screening LATERALITY: (B)
== END 2023-03-26 09:54 | disposition home or self-care (01) ==
LOC: DI 09:53
PROVIDERS: ATTEND Internal Medicine Hematology & Oncology
DX: C50.012 Malignant neoplasm of nipple and areola, left female breast (principal); R92.323 Mammographic fibroglandular density, bilateral breasts

== ENCOUNTER 2023-06-12 09:02 | Outpatient (CLI) | payer MEDICARE, OTHER ==
[2023-06-12 09:36] LABS: BASOPHILS % (AUTO) 0.7 %; EOSINOPHILS # (AUTO) 0.1 10^3/uL (0.0-0.7); EOSINOPHILS % (AUTO) 3.1 %; HCT - HEMATOCRIT 38.4 % (37.0-47.0); HGB - HEMOGLOBIN 12.4 g/dL (12.0-16.0); LYMPHOCYTES # (AUTO) 1.5 10^3/uL (1.5-3.5); LYMPHOCYTES % (AUTO) 35.9 %; MEAN CORPUSCULAR HEMOGLOBIN 30.8 pg (27.0-31.0); MEAN CORPUSCULAR HGB CONC 32.3 g/dL (32.0-36.0); MEAN CORPUSCULAR VOLUME 95.3 fL (81.0-99.0); MEAN PLATELET VOLUME 9.2 fL (7.9-10.8); MONOCYTES # (AUTO) 0.5 10^3/uL (0.0-1.0); MONOCYTES % (AUTO) 10.6 %; NEUTROPHILS # (AUTO) 2.1 10^3/uL (1.5-6.6); NEUTROPHILS % (AUTO) 49.2 %; PLT - PLATELET COUNT 138 10^3/uL (130-450); RED BLOOD COUNT 4.03 10^6/uL (4.20-5.40); WHITE BLOOD COUNT 4.2 x10^3/uL (4.8-10.8)
[2023-06-12 09:48] LABS: ALBUMIN 4.1 g/dL (3.2-5.5); ALBUMIN/GLOBULIN RATIO 1.6 (1.0-2.2); ALKALINE PHOSPHATASE 49 IU/L (42-121); ALT ALANINE AMINOTRANSFERASE 14 IU/L (10-60); AST ASPARTATE AMINOTRANSFERASE 20 IU/L (10-42); BILIRUBIN,TOTAL 0.5 mg/dL (0.2-1.0); BUN - BLOOD UREA NITROGEN 29 mg/dL (6-20); CALCIUM 9.5 mg/dL (8.5-10.3); CARBON DIOXIDE - CO2 29 mmol/L (21-32); CHLORIDE 104 mmol/L (101-111); CHOL/HDL RATIO 2.4 (<4.4); CHOLESTEROL 146 mg/dL; CREATININE 1.1 mg/dL (0.6-1.3); GFR - MDRD 48 (>89); GLUCOSE 106 mg/dL (74-104); HDL CHOLESTEROL 61 mg/dL; LDL CHOLESTEROL,CALCULATED 64 mg/dL; SODIUM 139 mmol/L (135-145); TOTAL PROTEIN 6.7 g/dL (6.4-8.9); TRIGLYCERIDES 104 mg/dL (48-352); VLDL CHOLESTEROL 21 mg/dL
[2023-06-12 10:22] LABS: THYROID STIMULATING HORMONE 1.67 uIU/mL (0.34-5.60)
== END 2023-06-12 09:03 | disposition home or self-care (01) ==
LOC: LAB 09:02
PROVIDERS: ATTEND Registered Nurse
DX: Z13.228 Encounter for screening for other metabolic disorders (principal); Z13.220 Encounter for screening for lipoid disorders; Z13.29 Encounter for screening for other suspected endocrine disorder; Z13.0 Encounter for screening for diseases of the blood and blood-forming organs and certain disorders involving the immune mechanism
CPT/HCPCS: 36415; 80053; 80061; 83721; 84443; 85025

== ENCOUNTER 2024-01-16 11:10 | Outpatient (CLI) | payer MEDICARE, OTHER ==
--- NOTE | 2024-01-16 20:49 | Ultrasound Report ---
PROCEDURE: Abdomen Limited INDICATIONS: R FLANK PAIN TECHNIQUE: Real-time focused scanning was performed of the abdomen, with image documentation. COMPARISONS: None. FINDINGS: Liver: Liver is normal in size and heterogeneous in echotexture. No solid hepatic lesion. Gallbladder: No gallstones, sludge, wall thickening or pericholecystic edema. Biliary ducts: Intrahepatic bile ducts are non-dilated. Extrahepatic bile duct caliber measures 6 m m. Normal is 6-7 mm or less in diameter, or 10 mm or less post-cholecystectomy. Pancreas: Visualized portions of the pancreas are sonographically normal. Right kidney: Normal in size and echotexture. Right kidney measures 10.9 cm long. 6 x 5 x 11 mm echo genic focus is seen in upper pole right kidney which may represent a nonobstructing stone. No hydrone phrosis.. No solid masses. No complex renal cystic lesions which require follow-up. IVC: Intrahepatic inferior vena cava is patent. Miscellaneous: No free abdominal fluid. IMPRESSION: 1. Possible nonobstructing right renal stone as above. No hydronephrosis. 2. Mildly heterogeneous liver parenchymal echotexture suggestive of hepatic steatosis versus other ty pes of metabolic liver disease. No discrete hepatic lesion. 3. Normal-appearing gallbladder. No biliary ductal dilatation. Reviewed by: Ezra Saenz MD on 01/16/2024 8:48 PM PDT Approved by: Ezra Saenz MD on 01/16/2024 8:48 PM PDT Station ID: [id number]
== END 2024-01-16 11:11 | disposition home or self-care (01) ==
LOC: DI 11:10
PROVIDERS: ATTEND Registered Nurse
DX: R10.9 Unspecified abdominal pain (principal); R93.5 Abnormal findings on diagnostic imaging of other abdominal regions, including retroperitoneum